=== PATIENT | female | born 1975 | race Caucasian/White ===

== ENCOUNTER 2017-11-11 17:26 | Inpatient (IN) | payer OTHER ==
[~2017-11-11] VITALS: Ht 167.6 cm; Wt 68.9 kg
[2017-11-14] MEDS ORDERED: TOPROL XL25 M1 PO (18:36)
[2017-11-14] MEDS ORDERED: ADULT ASPIRIN81 MG PO (18:36)
== END 2017-11-14 19:05 | disposition home or self-care (01) | DRG 282 ==
LOC: ER 17:26 → MEDI 11-12 08:24 → MEDJ 11-12 08:24
PROC: B246ZZZ Ultrasonography of Right and Left Heart (ICD-10-PCS; principal; 2017-11-12)
PROC: 4A12X4Z Monitoring of Cardiac Electrical Activity, External Approach (ICD-10-PCS; 2017-11-12)
PROC: C23GYZZ Positron Emission Tomographic (PET) Imaging of Myocardium using Other Radionuclide (ICD-10-PCS; 2017-11-14)
PROC: 4A12XM4 Monitoring of Cardiac Stress, External Approach (ICD-10-PCS; 2017-11-14)
PROC: 3E033HZ Introduction of Radioactive Substance into Peripheral Vein, Percutaneous Approach (ICD-10-PCS; 2017-11-14)
DX: I21.4 Non-ST elevation (NSTEMI) myocardial infarction (principal); I24.9 Acute ischemic heart disease, unspecified; R00.0 Tachycardia, unspecified

== ENCOUNTER 2018-07-17 01:41 | Emergency (ER) | payer OTHER ==
[~2018-07-17] VITALS: Ht 170.2 cm; Wt 70.3 kg
[~2018-07-17 01:41] MED LIST: ADULT ASPIRIN81 MG PO; TOPROL XL25 M1 PO
[2018-07-17] MEDS ORDERED: PEPCID40 MG PO (08:11)
== END 2018-07-17 08:58 ==
LOC: ER 01:41 → CPU-OBS 01:42 → ER 01:42
DX: R07.89 Other chest pain (principal); K21.9 Gastro-esophageal reflux disease without esophagitis
CPT/HCPCS: G0378; G0379; 93005

== ENCOUNTER 2018-09-18 08:26 | Emergency (ER) | payer OTHER ==
[~2018-09-18] VITALS: Ht 157.5 cm; Wt 65.8 kg
[~2018-09-18 08:26] MED LIST changes: +PEPCID40 MG PO
== END 2018-09-18 12:22 | disposition home or self-care (01) ==
LOC: ER 08:26
DX: R42 Dizziness and giddiness (principal)